=== PATIENT | female | born 1985 | race Caucasian/White ===

== ENCOUNTER 2021-07-04 14:59 | Outpatient (REF) | payer MEDICAID, SELFPAY | END 2021-07-04 15:00 | disposition home or self-care (01) | LOC: HO.LAB 14:59 | PROVIDERS: PCP Internal Medicine Geriatric Medicine; Visit Provider Internal Medicine | DX: Z20.822 Contact with and (suspected) exposure to COVID-19 (principal) | CPT/HCPCS: C9803; U0003; U0005 ==

== ENCOUNTER 2021-12-05 18:31 | Outpatient (REF) | payer MEDICAID, SELFPAY ==
--- NOTE | ~2021-12-05 | MR_ITS ---
EXAMINATION: MR KNEE WITHOUT CONTRAST, RIGHT CLINICAL INFORMATION: Right knee pain. Limited range of motion. Status post fall. COMPARISON: None TECHNIQUE: MRI of the knee without contrast was performed using routine sequences on a high-field scanner. FINDINGS: MENISCI: Medial Meniscus: There is a horizontal tear of the meniscal body extending to the undersurface near the free edge margin. Lateral Meniscus: There is a complex tear of the lateral meniscus with a high-grade radial component at the body, a proximally extruded 0.8 cm flap fragment along the lateral meniscofemoral recess, a complex horizontal component of the tear in the anterior horn, and a vertical component at the posterior horn. Meniscal body is partially extruded. A parameniscal cyst is evident at the anterior horn of the lateral meniscus. LIGAMENTS: Cruciate: Intact Collateral: Intact EXTENSOR MECHANISM: Enthesopathic spurring is present at the quadriceps tendon insertion on the patella, the patellar tendon origin, and the patellar tendon insertion. ARTICULAR CARTILAGE/BONE: Patellofemoral Compartment: Uzpccght-ax-hcyhda nonuniform articular cartilage loss is evident at the medial patellar and trochlear facets with underlying cortical irregularity and ouivpyti-py-zezyi marginal osteophytes. There is more mild chondral thinning surface irregularity at the medial facets. TT TG distance measures 1.3 cm. Medial Compartment: Moderate size marginal osteophytes. Articular cartilage is relatively well-preserved. Small ganglion cyst arises at the posterior aspect of the joint capsule at the medial compartment. Lateral Compartment: Large size marginal osteophytes. Moderate nonuniform chondral thinning and surface irregularity are present at the lateral tibial plateau posteriorly and at the posterior weightbearing surface of the lateral femoral condyle. Foci nonuniform cartilage loss are present at the posterior non-weightbearing surface of the lateral femoral. There is moderate osteoarthritis at the proximal tibiofibular joint with subchondral edema within the tibial plateau. JOINT FLUID AND BURSAE: There is a moderate-sized joint effusion with associated synovitis. MR/MR knee RT wo con IMPRESSION: 1. Lwik-et-elbdujbz lateral compartment osteoarthritis with a complex lateral meniscal flap tear. 2. Moderate patellofemoral compartment osteoarthritis, more pronounced at the lateral facets. 3. Minimal medial compartment osteoarthritis with a horizontal tear of the meniscal body. 4. Moderate-sized joint effusion.
== END 2021-12-05 18:32 | disposition home or self-care (01) ==
LOC: HO.MRI 18:31
PROVIDERS: Visit Provider Registered Nurse Community Health
DX: M25.461 Effusion, right knee (principal); M25.561 Pain in right knee
CPT/HCPCS: 73721

== ENCOUNTER 2025-05-04 12:59 | Outpatient (REF) | payer MEDICAID, SELFPAY ==
--- NOTE | 2025-05-04 | EMG_ITS ---
Chief complaint: Left worse than right hand numbness Reason for referral: Evaluate for Carpal Tunnel Syndrome Referred by: Gurpreet ROBLEDO Procedure done: Bilateral upper extremities NCS/EMG Precautions and/or limitations: None The limb temperature was monitored continuously and remained between 32-36 degrees C during the performance of the NCS. Nerve Conduction Studies Anti Sensory Summary Table ?Stim Site NR Onset (ms) Norm Onset (ms) Peak (ms) Norm Peak (ms) O-P Amp (?V) Norm O-P Amp Site1 Site2 Delta-0 (ms) Dist (cm) Jesus (m/s) Norm Jesus (m/s) Left Median Anti Sensory (2nd Digit) Wrist ? 4.0 5.3 <3.6 10.6 >10 Wrist 2nd Digit 4.0 14.0 35 Right Median Anti Sensory (2nd Digit) Wrist ? 2.6 3.2 <3.6 40.1 >10 Wrist 2nd Digit 2.6 14.0 54 Left Ulnar Anti Sensory (5th Digit) Wrist ? 2.2 2.8 <3.7 31.6 >15.0 Wrist 5th Digit 2.2 14.0 64 Right Ulnar Anti Sensory (5th Digit) Wrist ? 2.2 2.8 <3.7 21.7 >15.0 Wrist 5th Digit 2.2 14.0 64 Motor Summary Table ?Stim Site NR Onset (ms) Norm Onset (ms) O-P Amp (mV) Norm O-P Amp iAmp (mV) Amp (1st) (%) Site1 Site2 Delta-0 (ms) Dist (cm) Jesus (m/s) Norm Jesus (m/s) Left Median Motor (Abd Poll Brev) Wrist ? 5.3 <3.9 12.0 >4.5 13.7 100.0 Elbow Wrist 3.6 18.5 51 >45 Elbow ? 8.9 11.6 13.4 96.7 Right Median Motor (Abd Poll Brev) Wrist ? 3.3 <3.9 12.7 >4.5 15.8 100.0 Elbow Wrist 3.5 19.5 56 >45 Elbow ? 6.8 12.5 15.4 98.4 Left Ulnar Motor (Abd Dig Minimi) Wrist ? 2.3 <3.0 7.2 >5 9.3 100.0 B Elbow Wrist 2.9 18.0 62 >45 B Elbow ? 5.2 6.7 8.4 93.1 A Elbow B Elbow 1.4 10.0 71 >45 A Elbow ? 6.6 6.4 8.1 88.9 Right Ulnar Motor (Abd Dig Minimi) Wrist ? 2.6 <3.0 8.5 >5 11.0 100.0 B Elbow Wrist 2.9 18.5 64 >45 B Elbow ? 5.5 8.3 10.7 97.6 A Elbow B Elbow 1.1 10.0 91 >45 A Elbow ? 6.6 7.3 9.3 85.9 Comparison Summary Table ?Stim Site NR Peak (ms) Norm Peak (ms) P-T Amp (?V) Site1 Site2 Delta-P (ms) Norm Delta (ms) Right Median/Radial Dig I Comparison (Digit 1 - 10cm) Median ? 2.8 <2.9 58.6 Median Radial 0.5 Radial ? 2.3 <2.8 6.2 EMG ?Side Muscle Nerve Root Ins Act Fibs Psw Amp Dur Poly Recrt Int Pat Comment Left 1stDorInt Ulnar C8-T1 Nml Nml Nml Nml Nml 0 Nml Complete Left FlexCarRad Median C6-7 Nml Nml Nml Nml Nml 0 Nml Complete Left Biceps Musculocut C5-6 Nml Nml Nml Nml Nml 0 Nml Complete Left Triceps Radial C6-7-8 Nml Nml Nml Nml Nml 0 Nml Complete Left Deltoid Axillary C5-6 Nml Nml Nml Nml Nml 0 Nml Complete FINDINGS: Left median motor nerve showed prolonged distal latency, normal amplitude and normal conduction velocity. Left median sensory nerve showed prolonged peak latency. Interlatency difference between right median and radial sensory nerves was 0.5. All other nerves tested were within normal. Concentric needle EMG was performed in selected muscles of the left upper extremity. Study did not reveal signs of electric abnormalities as shown in the table above. IMPRESSION: 1. This is an abnormal study. 2. There is electrodiagnostic evidence for left moderate-severe and right borderline median neuropathy at the wrist, consistent with carpal tunnel syndrome. 3. There is no electrodiagnostic evidence for ulnar neuropathy, brachial plexopathy, or cervical radiculopathy. Thank you for your kind referral. Chela Ventura MD, ABEL Board Certified, [place] [employer] (ABPMR) Board Certified, [place] [employer] (ABEM) CODIN [phone] BILLY
== END 2025-05-04 13:00 | disposition home or self-care (01) ==
LOC: HO.NEURO 12:59
PROVIDERS: PCP Internal Medicine Geriatric Medicine
DX: R20.0 Anesthesia of skin (principal); R20.2 Paresthesia of skin; R94.131 Abnormal electromyogram [EMG]
CPT/HCPCS: 95886; 95911

== ENCOUNTER → 2025-05-04 13:03 | Outpatient (BNV) | payer MEDICAID, SELFPAY | PROVIDERS: PCP Internal Medicine Geriatric Medicine; Visit Provider Physical Medicine & Rehabilitation | DX: G56.03 Carpal tunnel syndrome, bilateral upper limbs (principal) | CPT/HCPCS: 95886; 95911 ==